=== PATIENT | male | born 1935 | race Caucasian/White ===

== ENCOUNTER 2016-11-07 22:09 | Inpatient (IN) | payer OTHER, MEDICAID ==
[~2016-11-07] VITALS: Ht 165.1 cm; Wt 60.4 kg
[~2016-11-07 22:09] MED LIST: ETOMIDATE 2MG/ML 10ML VIAL IV ONE; SUCCINYLCHOLINE CHLORIDE 200MG/10ML VIAL IV ONE
[2016-11-07] MEDS ORDERED: NITROGLYCERIN OINT 1GM/INCH UDPKT TD STA (22:17)
[2016-11-07] MEDS ORDERED: FUROSEMIDE 40MG/4ML VIAL IV STA (22:17)
[2016-11-07] MEDS ORDERED: LORAZEPAM 2MG/ML CPJ ONE (22:28)
[2016-11-07] MEDS ORDERED: LORAZEPAM 2MG/ML CPJ IV ONE (22:30)
[2016-11-07 22:52] LABS: BG BASE EXCESS -1.9 mmol/L (-2.0-2.0); BG BILEVEL POS AIRWAY PRESSURE 15/5; BG CARBOXYHEMOGLOBIN 0.4 % (0.5-1.5); BG DEOXYHEMOGLOBIN 0.1 % (0.0-5.0); BG FRACTION INSPIRED OXYGEN 100; BG HCO3 ACT 18.6 mmol/L (22.0-26.0); BG METHEMOGLOBIN 0.5 % (0.0-1.5); BG OXYGEN SATURATION 99.9 % (92.0-98.5); BG PCO2 22.2 mmHg (35.0-45.0); BG PH 7.541 (7.350-7.450); BG PO2 412.4 mmHg (75.0-100.0); BG SAMPLE SITE RIGHT BRACHIAL; BG TOTAL HEMOGLOBIN 13.6 g/dL (12.0-18.0); BG VENT MODE MASK - BIPAP
[2016-11-07 22:59] LABS: HEMATOCRIT. 37.7 % (42.0-52.0); HEMOGLOBIN. 12.4 g/dL (14.0-18.0); MEAN CORPUSCULAR HEMOGLOBIN 29.3 pg (28.0-32.0); MEAN CORPUSCULAR VOLUME 89.3 fL (80.0-94.0); MEAN PLATELET VOLUME 8.9 fl (7.4-10.4); PLATELET 76 x1000/uL (130-400); RED BLOOD CELL COUNT 4.23 mill/uL (4.7-6.1); RED CELL DISTRIBUTION WIDTH 18.1 % (11.6-14.6)
[2016-11-07] MEDS ORDERED: DILTIAZEM HCL 5MG/ML 5ML VIAL IV ONE (23:00)
[2016-11-07 23:07] LABS: INR 1.4; PARTIAL THROMBOPLASTIN TIME 34.5 sec (23.4-31.0); PROTHROMBIN TIME 14.6 sec (9.4-11.6)
[2016-11-07 23:08] LABS: CARBON DIOXIDE 24 mEq/L (21-32); CHLORIDE 104 mEq/L (98-107)
[2016-11-07 23:13] LABS: TROPONIN I 0.09 ng/mL (0.00-0.04)
[2016-11-07 23:21] LABS: PLATELET ESTIMATE MARKEDLY DECREASED
[2016-11-07] MEDS ORDERED: SODIUM CHLORIDE 0.9% 1,000 ML IV ONE (23:22)
[2016-11-07] MEDS ORDERED: LEVOFLOXACIN 750MG PREMIX 150 ML IV ONE (23:30)
[2016-11-07] MEDS ORDERED: ACETAMINOPHEN 650MG SUPP PR ONE (23:45)
[2016-11-08] VITALS (21 sets, daily range): BP systolic 38–120; BP diastolic 17–84
[2016-11-08] MEDS ORDERED: ENOXAPARIN 80MG/0.8ML SYR SUBCUT ONE (01:15)
[2016-11-08] MEDS ORDERED: ASPIRIN 325MG EC TABLET PO ONE (01:15)
[2016-11-08] MEDS ORDERED: SODIUM CHLORIDE 0.9% 1,000 ML IV ONE (02:18)
[2016-11-08] MEDS ORDERED: ONDANSETRON HCL 4MG/2ML VIAL IV PRN (05:15)
[2016-11-08] MEDS ORDERED: PIPERACILLIN/TAZ 3.375G PREMIX 50 ML IV SCH (05:15)
[2016-11-08] MEDS ORDERED: NOREPINEPHRINE 4 MG in DEXT 5% WATER 246 ML IV PRN (05:15)
[2016-11-08] MEDS ORDERED: IPRATROPIUM/ALBUTEROL 0.5-3(2.5)MG/3ML NEB HHN SCH (06:00)
[2016-11-08] MEDS ORDERED: PIPERACILLIN/TAZ 2.25G PREMIX 50 ML IV SCH (06:00)
[2016-11-08 06:51] LABS: HEMATOCRIT. 34.8 % (42.0-52.0); HEMOGLOBIN. 11.3 g/dL (14.0-18.0); MEAN CORPUSCULAR HEMOGLOBIN 29.5 pg (28.0-32.0); MEAN CORPUSCULAR VOLUME 90.5 fL (80.0-94.0); RED BLOOD CELL COUNT 3.85 mill/uL (4.7-6.1); RED CELL DISTRIBUTION WIDTH 18.1 % (11.6-14.6)
[2016-11-08] MEDS ORDERED: VANCOMYCIN 1500MG in DEXTROSE 5% WATER 250ML IV NR (07:00)
[2016-11-08 07:21] LABS: CREATINE KINASE MB FRACTION 6.3 ng/mL (0.5-3.6); TROPONIN I 0.17 ng/mL (0.00-0.04)
[2016-11-08 07:48] LABS: PLATELET 44 x1000/uL (130-400)
[2016-11-08 08:02] LABS: BG BASE EXCESS -3.6 mmol/L (-2.0-2.0); BG BILEVEL POS AIRWAY PRESSURE ST=15/5; BG CARBOXYHEMOGLOBIN 0.3 % (0.5-1.5); BG FRACTION INSPIRED OXYGEN 40; BG HCO3 ACT 18.6 mmol/L (22.0-26.0); BG METHEMOGLOBIN 0.2 % (0.0-1.5); BG OXYHEMOGLOBIN 98.5 % (94.0-97.0); BG PCO2 26.1 mmHg (35.0-45.0); BG PRESSURE SUPPORT 10; BG SAMPLE SITE RIGHT BRACHIAL; BG TOTAL HEMOGLOBIN 12.9 g/dL (12.0-18.0); BG VENT MODE MASK - BIPAP; BG VENT RATE 15 set
[2016-11-08] MEDS: PANTOPRAZOLE SODIUM 40 MG/VIAL IV SCH (10:27)
[2016-11-08 10:46] LABS: PLATELET ESTIMATE MARKEDLY DECREASED
[2016-11-08] MEDS ORDERED: DILTIAZEM HCL 5MG/ML 5ML VIAL IV NR (11:30)
[2016-11-08] MEDS ORDERED: DILTIAZEM HCL 125 MG in DEXTROSE 5% WATER 125 ML IV PRN (11:30)
[2016-11-08] MEDS ORDERED: DILTIAZEM HCL 5MG/ML 5ML VIAL IV ONE (11:35)
[2016-11-08] MEDS ORDERED: PHENYLEPHRINE HCL 10 MG/ML 1ML (IV VIAL) IV ONE (11:38)
[2016-11-08] MEDS ORDERED: DIGOXIN 500MCG/2ML AMP ONE (11:38)
[2016-11-08 11:39] LABS: ETHANOL BLOOD < 10 mg/dL; T4 FREE 1.39 ng/dL (0.76-1.46)
[2016-11-08] MEDS ORDERED: DIGOXIN 500MCG/2ML AMP IV NR (11:45)
[2016-11-08] MEDS ORDERED: NOREPINEPHRINE BITARTRATE 1MG/ML 4ML IV ONE (11:53)
[2016-11-08] MEDS ORDERED: LORAZEPAM 2MG/ML CPJ ONE (11:54)
[2016-11-08] MEDS ORDERED: SODIUM BICARBONATE 8.4% 1 MEQ/ML 50ML SYR IV ONE ×3 (11:55→12:00)
[2016-11-08] MEDS: IPRATROPIUM/ALBUTEROL 0.5-3(2.5)MG/3ML NEB HHN SCH ×3 (12:00→20:40)
[2016-11-08] MEDS ORDERED: VASOPRESSIN 10 UNIT in SODIUM CHLORIDE 0.9% 99.5 ML IV PRN (12:00)
[2016-11-08] MEDS ORDERED: LORAZEPAM 2MG/ML CPJ IV ONE (12:00)
[2016-11-08] MEDS ORDERED: PHENYLEPHRINE 10 MG in DEXT 5% WATER 249 ML IV PRN ×4 (12:00)
[2016-11-08] MEDS ORDERED: AMIODARONE HCL 900 MG in DEXT 5% WATER 482 ML IV SCH (12:00)
[2016-11-08] MEDS: PROPOFOL 10MG/ML 100ML 100 ML IV PRN ×2 (12:25→17:59)
[2016-11-08 12:29] LABS: BG BASE EXCESS -12.6 mmol/L (-2.0-2.0); BG DEOXYHEMOGLOBIN 0.4 % (0.0-5.0); BG FRACTION INSPIRED OXYGEN 100; BG HCO3 ACT 14.2 mmol/L (22.0-26.0); BG METHEMOGLOBIN 0.4 % (0.0-1.5); BG OXYGEN SATURATION 99.6 % (92.0-98.5); BG OXYHEMOGLOBIN 99.2 % (94.0-97.0); BG PCO2 35.9 mmHg (35.0-45.0); BG PH 7.216 (7.350-7.450); BG PO2 320.5 mmHg (75.0-100.0); BG SAMPLE SITE RIGHT RADIAL; BG TIDAL VOLUME(mL) 500 mL; BG VENT MODE VENT - A/C; BG VENT RATE 12 set
[2016-11-08] MEDS ORDERED: CEFEPIME 1GM PREMIX 50 ML IV SCH (13:00)
[2016-11-08] MEDS: CEFEPIME 1,000 MG in DEXTROSE 5% WATER 50 ML IV SCH (14:01)
[2016-11-08] MEDS: SODIUM BICARBONATE 100 MEQ in DEXTROSE 5% WATER 1,000 ML IV SCH (14:01)
[2016-11-08] MEDS: NOREPINEPHRINE 4 MG in DEXT 5% WATER 246 ML IV PRN ×2 (14:26→18:40)
[2016-11-08 14:54] LABS: HEMATOCRIT. 38.8 % (42.0-52.0); HEMOGLOBIN. 12.7 g/dL (14.0-18.0); MEAN CORPUSCULAR HEMOGLOBIN 29.7 pg (28.0-32.0); MEAN CORPUSCULAR VOLUME 90.7 fL (80.0-94.0); MEAN PLATELET VOLUME 9.3 fl (7.4-10.4); RED BLOOD CELL COUNT 4.28 mill/uL (4.7-6.1); RED CELL DISTRIBUTION WIDTH 18.3 % (11.6-14.6)
[2016-11-08 15:12] LABS: TROPONIN I 0.24 ng/mL (0.00-0.04)
[2016-11-08 15:17] LABS: CREATINE KINASE MB FRACTION 7.5 ng/mL (0.5-3.6)
[2016-11-08 15:20] LABS: PLATELET 43 x1000/uL (130-400)
[2016-11-08 15:23] LABS: CLARITY URINE CLOUDY (CLEAR); COLOR URINE YELLOW (YELLOW); GLUCOSE URINE NEGATIVE (NEGATIVE); KETONES URINE NEGATIVE (NEGATIVE); LEUKOCYTE ESTERASE URINE 3+ (NEGATIVE); NITRITE URINE NEGATIVE (NEGATIVE); OCCULT BLOOD URINE 3+ (NEGATIVE); PH URINE 5.5 (4.5-8.0); PROTEIN URINE 2+ (NEGATIVE); SPECIFIC GRAVITY URINE 1.014 (1.005-1.030); UROBILINOGEN URINE 0.2 E.U./dL (0.2-1.0)
[2016-11-08] MEDS ORDERED: PHENYLEPHRINE 80 MG in DEXT 5% WATER 500 ML IV PRN (20:30)
[2016-11-08] MEDS ORDERED: NOREPINEPHRINE 16 MG in DEXT 5% WATER 484 ML IV PRN (20:30)
[2016-11-08] MEDS ORDERED: CEFEPIME HCL 1000MG/VIAL INJ IM SCH (21:00)
[2016-11-08] MEDS: PHENYLEPHRINE 80 MG in DEXT 5% WATER 500 ML IV PRN (21:27)
[2016-11-08 23:02] LABS: PLATELET ESTIMATE MARKEDLY DECREASED
[2016-11-09] VITALS (69 sets, daily range): BP systolic 86–125; BP diastolic 31–89
[2016-11-09] MEDS: IPRATROPIUM/ALBUTEROL 0.5-3(2.5)MG/3ML NEB HHN SCH ×6 (00:19→20:59)
[2016-11-09] MEDS: SODIUM BICARBONATE 100 MEQ in DEXTROSE 5% WATER 1,000 ML IV SCH ×3 (02:13→14:18)
[2016-11-09 05:50] LABS: HEMATOCRIT. 38.6 % (42.0-52.0); HEMOGLOBIN. 12.7 g/dL (14.0-18.0); MEAN CORPUSCULAR HEMOGLOBIN 29.5 pg (28.0-32.0); MEAN CORPUSCULAR VOLUME 89.7 fL (80.0-94.0); MEAN PLATELET VOLUME 10.6 fl (7.4-10.4); RED CELL DISTRIBUTION WIDTH 18.1 % (11.6-14.6)
[2016-11-09 06:07] LABS: PLATELET 32 x1000/uL (130-400)
[2016-11-09 06:14] LABS: CARBON DIOXIDE 23 mEq/L (21-32); CHLORIDE 97 mEq/L (98-107); CREATINE KINASE MB FRACTION 3.9 ng/mL (0.5-3.6); HDL CHOLESTEROL 11 mg/dL (40-59); LDL CHOLESTEROL 27 mg/dL (5-100); TROPONIN I 0.26 ng/mL (0.00-0.04)
[2016-11-09 06:23] LABS: CREATINE KINASE 1272 IU/L (39-308)
[2016-11-09] MEDS: PROPOFOL 10MG/ML 100ML 100 ML IV PRN ×2 (06:59→23:23)
[2016-11-09 08:28] LABS: PLATELET ESTIMATE MARKEDLY DECREASED
[2016-11-09] MEDS ORDERED: POTASSIUM CHLORIDE 20MEQ TABLET SR PO SCH (08:30)
[2016-11-09] MEDS: PANTOPRAZOLE SODIUM 40 MG/VIAL IV SCH (08:55)
[2016-11-09 10:08] LABS: BG BASE EXCESS -2.2 mmol/L (-2.0-2.0); BG CARBOXYHEMOGLOBIN 0.3 % (0.5-1.5); BG DEOXYHEMOGLOBIN 1.9 % (0.0-5.0); BG FRACTION INSPIRED OXYGEN 40; BG HCO3 ACT 19.7 mmol/L (22.0-26.0); BG METHEMOGLOBIN 0.3 % (0.0-1.5); BG OXYGEN SATURATION 98.1 % (92.0-98.5); BG OXYHEMOGLOBIN 97.5 % (94.0-97.0); BG PCO2 26.3 mmHg (35.0-45.0); BG PH 7.492 (7.350-7.450); BG PO2 106.5 mmHg (75.0-100.0); BG SAMPLE SITE LEFT RADIAL; BG TIDAL VOLUME(mL) 500 mL; BG VENT MODE VENT - A/C; BG VENT RATE 12 set
[2016-11-09] MEDS: PHENYLEPHRINE 80 MG in DEXT 5% WATER 500 ML IV PRN (10:25)
[2016-11-09] MEDS ORDERED: VANCOMYCIN 1 G PREMIX 200 ML IV NR (12:00)
[2016-11-09] MEDS ORDERED: VANCOMYCIN HCL 1000 MG/20 ML ORAL PO SCH (12:00)
[2016-11-09] MEDS: ACETAMINOPHEN 650MG/20.3ML UDC NG PRN (12:24)
[2016-11-09] MEDS: DILTIAZEM HCL 30MG TABLET PO SCH ×2 (13:15→17:45)
[2016-11-09] MEDS: CEFEPIME 1,000 MG in DEXTROSE 5% WATER 50 ML IV SCH (13:46)
[2016-11-09] MEDS ORDERED: METRONIDAZOLE 500MG TABLET PO SCH (14:00)
[2016-11-09] MEDS ORDERED: FURO20TA4 PO (15:43)
[2016-11-09] MEDS ORDERED: TAMS0.4C31 PO (15:43)
[2016-11-09] MEDS ORDERED: OCD PO (15:43)
[2016-11-09] MEDS ORDERED: FINA5TAB11 PO (15:43)
[2016-11-09] MEDS ORDERED: ASPI-1159 PO (15:43)
[2016-11-09] MEDS ORDERED: METO25TA6 PO (15:43)
[2016-11-09] MEDS: VANCOMYCIN HCL 1000 MG/20 ML ORAL NG SCH (17:45)
[2016-11-09] MEDS ORDERED: METRONIDAZOLE 500 MG PREMIX 100 ML IV SCH (22:00)
[2016-11-10] VITALS (57 sets, daily range): BP systolic 83–127; BP diastolic 50–87
[2016-11-10] MEDS: IPRATROPIUM/ALBUTEROL 0.5-3(2.5)MG/3ML NEB HHN SCH ×6 (00:32→20:03)
[2016-11-10] MEDS: PHENYLEPHRINE 80 MG in DEXT 5% WATER 500 ML IV PRN ×2 (00:38→18:23)
[2016-11-10] MEDS: DILTIAZEM HCL 30MG TABLET PO SCH ×5 (00:39→23:54)
[2016-11-10] MEDS: VANCOMYCIN HCL 1000 MG/20 ML ORAL NG SCH ×5 (00:39→23:54)
[2016-11-10] MEDS ORDERED: LEVOFLOXACIN 500MG PREMIX 100 ML IV SCH (01:00)
[2016-11-10] MEDS: SODIUM BICARBONATE 100 MEQ in DEXTROSE 5% WATER 1,000 ML IV SCH (01:51)
[2016-11-10 04:59] LABS: HEMATOCRIT. 35.1 % (42.0-52.0); HEMOGLOBIN. 11.8 g/dL (14.0-18.0); MEAN CORPUSCULAR HEMOGLOBIN 29.8 pg (28.0-32.0); MEAN CORPUSCULAR VOLUME 88.3 fL (80.0-94.0); MEAN PLATELET VOLUME 10.9 fl (7.4-10.4); RED BLOOD CELL COUNT 3.97 mill/uL (4.7-6.1); RED CELL DISTRIBUTION WIDTH 18.1 % (11.6-14.6)
[2016-11-10 05:08] LABS: CREATINE KINASE MB FRACTION 1.8 ng/mL (0.5-3.6); PHOSPHORUS 3.3 mg/dL (2.5-4.9); TROPONIN I 0.04 ng/mL (0.00-0.04)
[2016-11-10 05:37] LABS: PLATELET 33 x1000/uL (130-400)
[2016-11-10] MEDS ORDERED: POTASSIUM CHLORIDE INJ 40 MEQ in DEXT 5% WATER 250 ML IV SCH (06:30)
[2016-11-10 07:14] LABS: BG BASE EXCESS 4.7 mmol/L (-2.0-2.0); BG CARBOXYHEMOGLOBIN 0.2 % (0.5-1.5); BG DEOXYHEMOGLOBIN 2.1 % (0.0-5.0); BG FRACTION INSPIRED OXYGEN 40; BG HCO3 ACT 27.5 mmol/L (22.0-26.0); BG METHEMOGLOBIN 0.1 % (0.0-1.5); BG OXYGEN SATURATION 97.9 % (92.0-98.5); BG OXYHEMOGLOBIN 97.6 % (94.0-97.0); BG PCO2 34.4 mmHg (35.0-45.0); BG PO2 103.4 mmHg (75.0-100.0); BG SAMPLE SITE LEFT RADIAL; BG TIDAL VOLUME(mL) 450 mL; BG TOTAL HEMOGLOBIN 12.6 g/dL (12.0-18.0); BG VENT MODE VENT - A/C; BG VENT RATE 10 set
[2016-11-10] MEDS: PROPOFOL 10MG/ML 100ML 100 ML IV PRN (09:21)
[2016-11-10] MEDS: PANTOPRAZOLE SODIUM 40 MG/VIAL IV SCH (10:00)
[2016-11-10] MEDS: DEXT 5%/0.9% NACL 1,000 ML IV SCH ×2 (10:23→23:56)
[2016-11-10] MEDS ORDERED: MORPHINE SULFATE 2 MG/ML CPJ (NOT FOR IM USE) IV PRN (10:45)
[2016-11-10 11:57] LABS: PLATELET ESTIMATE MARKEDLY DECREASED
[2016-11-10] MEDS: CEFEPIME 1,000 MG in DEXTROSE 5% WATER 50 ML IV SCH (14:35)
[2016-11-10] MEDS: LORAZEPAM 2MG/ML CPJ IV PRN ×2 (18:29→23:54)
[2016-11-10] MEDS: MORPHINE SULFATE 2 MG/ML CPJ (NOT FOR IM USE) IV PRN (19:37)
[2016-11-11] VITALS (45 sets, daily range): BP systolic 83–136; BP diastolic 53–99
[2016-11-11] MEDS: IPRATROPIUM/ALBUTEROL 0.5-3(2.5)MG/3ML NEB HHN SCH ×6 (00:30→20:52)
[2016-11-11] MEDS: MORPHINE SULFATE 2 MG/ML CPJ (NOT FOR IM USE) IV PRN (03:09)
[2016-11-11 05:38] LABS: HEMATOCRIT. 32.1 % (42.0-52.0); HEMOGLOBIN. 10.7 g/dL (14.0-18.0); MEAN CORPUSCULAR HEMOGLOBIN 29.7 pg (28.0-32.0); MEAN CORPUSCULAR VOLUME 88.8 fL (80.0-94.0); MEAN PLATELET VOLUME 10.9 fl (7.4-10.4); RED BLOOD CELL COUNT 3.61 mill/uL (4.7-6.1); RED CELL DISTRIBUTION WIDTH 17.7 % (11.6-14.6)
[2016-11-11] MEDS: DILTIAZEM HCL 30MG TABLET PO SCH ×3 (05:53→17:55)
[2016-11-11] MEDS: VANCOMYCIN HCL 1000 MG/20 ML ORAL NG SCH ×4 (05:53→23:58)
[2016-11-11 05:59] LABS: PHOSPHORUS 2.2 mg/dL (2.5-4.9)
[2016-11-11 07:57] LABS: BG BASE EXCESS 2.2 mmol/L (-2.0-2.0); BG CARBOXYHEMOGLOBIN 0.3 % (0.5-1.5); BG DEOXYHEMOGLOBIN 3.9 % (0.0-5.0); BG FRACTION INSPIRED OXYGEN 40; BG HCO3 ACT 25.9 mmol/L (22.0-26.0); BG METHEMOGLOBIN 0.2 % (0.0-1.5); BG OXYGEN SATURATION 96.1 % (92.0-98.5); BG OXYHEMOGLOBIN 95.6 % (94.0-97.0); BG PCO2 36.7 mmHg (35.0-45.0); BG PH 7.466 (7.350-7.450); BG PO2 82.8 mmHg (75.0-100.0); BG SAMPLE SITE RIGHT BRACHIAL; BG TIDAL VOLUME(mL) 450 mL; BG TOTAL HEMOGLOBIN 11.7 g/dL (12.0-18.0); BG VENT MODE VENT - A/C; BG VENT RATE 10 set
[2016-11-11] MEDS: PANTOPRAZOLE SODIUM 40 MG/VIAL IV SCH (09:16)
[2016-11-11] MEDS ORDERED: KCL 10MEQ/50ML PREMIX 50 ML IV NR (09:30)
[2016-11-11 10:00] LABS: NUCLEATED RED BLOOD CELLS 1 /100 WBC; PLATELET ESTIMATE MARKEDLY DECREASED
[2016-11-11 10:01] LABS: PLATELET 33 x1000/uL (130-400)
[2016-11-11 10:45] LABS: BG BASE EXCESS 4.4 mmol/L (-2.0-2.0); BG DEOXYHEMOGLOBIN 2.8 % (0.0-5.0); BG FRACTION INSPIRED OXYGEN 40; BG HCO3 ACT 28.5 mmol/L (22.0-26.0); BG OXYGEN SATURATION 97.2 % (92.0-98.5); BG OXYHEMOGLOBIN 97.2 % (94.0-97.0); BG PCO2 40.6 mmHg (35.0-45.0); BG PH 7.464 (7.350-7.450); BG PRESSURE SUPPORT 6; BG SAMPLE SITE RIGHT BRACHIAL; BG TOTAL HEMOGLOBIN 11.9 g/dL (12.0-18.0); BG VENT MODE VENT - CPAP
[2016-11-11] MEDS ORDERED: POTASSIUM PHOS,M-BASIC-D-BASIC 20 MMOL in DEXT 5% WATER 243.3333 ML IV NR (11:00)
[2016-11-11] MEDS: DEXT 5%/0.9% NACL 1,000 ML IV SCH (11:46)
[2016-11-11] MEDS: CEFEPIME 1,000 MG in DEXTROSE 5% WATER 50 ML IV SCH (13:02)
[2016-11-12] VITALS (28 sets, daily range): BP systolic 103–139; BP diastolic 48–85
[2016-11-12] MEDS: DILTIAZEM HCL 30MG TABLET PO SCH ×4 (00:01→18:24)
[2016-11-12] MEDS: IPRATROPIUM/ALBUTEROL 0.5-3(2.5)MG/3ML NEB HHN SCH ×6 (00:19→20:18)
[2016-11-12] MEDS: DEXT 5%/0.9% NACL 1,000 ML IV SCH (03:54)
[2016-11-12] MEDS: VANCOMYCIN HCL 1000 MG/20 ML ORAL NG SCH ×3 (05:20→18:24)
[2016-11-12 06:51] LABS: BASOPHILS % 0.5 % (0.0-2.0); EOSINOPHILS % 0.6 % (0.0-5.0); HEMATOCRIT. 31.3 % (42.0-52.0); HEMOGLOBIN. 10.6 g/dL (14.0-18.0); LYMPHOCYTES % 11.3 % (20.0-50.0); MEAN CORPUSCULAR HEMOGLOBIN 29.9 pg (28.0-32.0); MEAN CORPUSCULAR VOLUME 88.7 fL (80.0-94.0); MEAN PLATELET VOLUME 9.9 fl (7.4-10.4); MONOCYTES % 13.6 % (2.0-8.0); RED BLOOD CELL COUNT 3.52 mill/uL (4.7-6.1); RED CELL DISTRIBUTION WIDTH 18.3 % (11.6-14.6)
[2016-11-12 07:20] LABS: PHOSPHORUS 2.1 mg/dL (2.5-4.9)
[2016-11-12 07:45] LABS: PLATELET 37 x1000/uL (130-400)
[2016-11-12] MEDS: PANTOPRAZOLE SODIUM 40 MG/VIAL IV SCH (09:00)
[2016-11-12] MEDS: ACETAMINOPHEN 650MG/20.3ML UDC NG PRN (10:22)
[2016-11-12 10:45] LABS: BG BASE EXCESS 0.4 mmol/L (-2.0-2.0); BG CARBOXYHEMOGLOBIN 0.1 % (0.5-1.5); BG DEOXYHEMOGLOBIN 6.4 % (0.0-5.0); BG FRACTION INSPIRED OXYGEN 40; BG HCO3 ACT 23.3 mmol/L (22.0-26.0); BG OXYGEN SATURATION 93.6 % (92.0-98.5); BG OXYHEMOGLOBIN 93.5 % (94.0-97.0); BG PO2 69.5 mmHg (75.0-100.0); BG SAMPLE SITE RIGHT BRACHIAL; BG TOTAL HEMOGLOBIN 11.6 g/dL (12.0-18.0); BG VENT MODE NASAL CANNULA
[2016-11-12] MEDS: ACETYLCYSTEINE 100MG/ML 10% VIAL 4ML INH SCH ×3 (11:28→20:18)
[2016-11-12] MEDS: CEFEPIME 1,000 MG in DEXTROSE 5% WATER 50 ML IV SCH (12:54)
[2016-11-12] MEDS: DEXT 5%/0.45% NACL KCL 20MEQ/L 1,000 ML IV SCH (15:00)
[2016-11-12] MEDS ORDERED: POTASSIUM PHOS,M-BASIC-D-BASIC 15 MMOL in DEXT 5% WATER 245 ML IV NR (16:00)
[2016-11-13] VITALS (24 sets, daily range): BP systolic 111–138; BP diastolic 64–111
[2016-11-13] MEDS: ACETYLCYSTEINE 100MG/ML 10% VIAL 4ML INH SCH ×6 (00:16→20:26)
[2016-11-13] MEDS: IPRATROPIUM/ALBUTEROL 0.5-3(2.5)MG/3ML NEB HHN SCH ×6 (00:16→20:26)
[2016-11-13 00:27] LABS: CLARITY URINE CLEAR (CLEAR); COLOR URINE DARK YELLOW (YELLOW); GLUCOSE URINE NEGATIVE (NEGATIVE); KETONES URINE NEGATIVE (NEGATIVE); LEUKOCYTE ESTERASE URINE 3+ (NEGATIVE); NITRITE URINE NEGATIVE (NEGATIVE); OCCULT BLOOD URINE 3+ (NEGATIVE); PROTEIN URINE 2+ (NEGATIVE); SPECIFIC GRAVITY URINE 1.014 (1.005-1.030); UROBILINOGEN URINE 0.2 E.U./dL (0.2-1.0)
[2016-11-13] MEDS: DILTIAZEM HCL 30MG TABLET PO SCH ×5 (00:32→23:59)
[2016-11-13] MEDS: VANCOMYCIN HCL 1000 MG/20 ML ORAL NG SCH ×4 (01:00→18:18)
[2016-11-13] MEDS: DEXT 5%/0.45% NACL KCL 20MEQ/L 1,000 ML IV SCH ×2 (05:46→17:01)
[2016-11-13 06:21] LABS: BASOPHILS % 0.6 % (0.0-2.0); EOSINOPHILS % 2.1 % (0.0-5.0); HEMATOCRIT. 33.7 % (42.0-52.0); HEMOGLOBIN. 11.2 g/dL (14.0-18.0); LYMPHOCYTES % 10.1 % (20.0-50.0); MEAN CORPUSCULAR VOLUME 90.7 fL (80.0-94.0); MEAN PLATELET VOLUME 11.5 fl (7.4-10.4); MONOCYTES % 6.9 % (2.0-8.0); NEUTROPHILS % 80.3 % (40.0-76.0); RED BLOOD CELL COUNT 3.72 mill/uL (4.7-6.1); RED CELL DISTRIBUTION WIDTH 18.5 % (11.6-14.6)
[2016-11-13 06:59] LABS: PLATELET 47 x1000/uL (130-400)
[2016-11-13] MEDS: PANTOPRAZOLE SODIUM 40 MG/VIAL IV SCH (09:00)
[2016-11-13] MEDS: CEFEPIME 1,000 MG in DEXTROSE 5% WATER 50 ML IV SCH (13:09)
[2016-11-14] VITALS (38 sets, daily range): BP systolic 98–162; BP diastolic 20–113
[2016-11-14] MEDS: ACETYLCYSTEINE 100MG/ML 10% VIAL 4ML INH SCH ×4 (00:29→20:10)
[2016-11-14] MEDS: IPRATROPIUM/ALBUTEROL 0.5-3(2.5)MG/3ML NEB HHN SCH ×5 (00:29→20:10)
[2016-11-14] MEDS: VANCOMYCIN HCL 1000 MG/20 ML ORAL NG SCH ×5 (00:44→23:41)
[2016-11-14] MEDS: DILTIAZEM HCL 30MG TABLET PO SCH (05:36)
[2016-11-14] MEDS: MORPHINE SULFATE 2 MG/ML CPJ (NOT FOR IM USE) IV PRN (05:56)
[2016-11-14 06:28] LABS: BASOPHILS % 0.4 % (0.0-2.0); HEMATOCRIT. 31.5 % (42.0-52.0); HEMOGLOBIN. 10.5 g/dL (14.0-18.0); LYMPHOCYTES % 11.5 % (20.0-50.0); MEAN CORPUSCULAR VOLUME 89.9 fL (80.0-94.0); MEAN PLATELET VOLUME 9.8 fl (7.4-10.4); MONOCYTES % 9.3 % (2.0-8.0); NEUTROPHILS % 76.8 % (40.0-76.0); PLATELET 78 x1000/uL (130-400); RED CELL DISTRIBUTION WIDTH 18.2 % (11.6-14.6)
[2016-11-14] MEDS: DEXT 5%/0.45% NACL KCL 20MEQ/L 1,000 ML IV SCH ×2 (07:02→20:15)
[2016-11-14 08:00] LABS: PHOSPHORUS 2.3 mg/dL (2.5-4.9)
[2016-11-14] MEDS: PANTOPRAZOLE SODIUM 40 MG/VIAL IV SCH (08:31)
[2016-11-14] MEDS: CEFEPIME 1,000 MG in DEXTROSE 5% WATER 50 ML IV SCH (11:56)
[2016-11-14] MEDS: DILTIAZEM HCL 60MG TABLET PO SCH ×3 (11:57→23:08)
[2016-11-14] MEDS ORDERED: DIATR MEGLU/DIATRIZOATE SOLN 30ML PO SCH (14:15)
[2016-11-14] MEDS: DILTIAZEM HCL 5MG/ML 5ML VIAL IV PRN (22:52)
[2016-11-14] MEDS: LORAZEPAM 2MG/ML CPJ IV PRN (23:02)
[2016-11-15] VITALS (36 sets, daily range): BP systolic 96–136; BP diastolic 47–89
[2016-11-15] MEDS: IPRATROPIUM/ALBUTEROL 0.5-3(2.5)MG/3ML NEB HHN SCH ×6 (00:35→20:26)
[2016-11-15] MEDS: ACETYLCYSTEINE 100MG/ML 10% VIAL 4ML INH SCH ×6 (00:35→20:27)
[2016-11-15] MEDS: VANCOMYCIN HCL 1000 MG/20 ML ORAL NG SCH ×4 (05:53→23:54)
[2016-11-15] MEDS: DILTIAZEM HCL 60MG TABLET PO SCH ×2 (05:53→11:45)
[2016-11-15 05:56] LABS: BASOPHILS % 0.4 % (0.0-2.0); EOSINOPHILS % 2.4 % (0.0-5.0); HEMOGLOBIN. 9.8 g/dL (14.0-18.0); LYMPHOCYTES % 15.1 % (20.0-50.0); MEAN CORPUSCULAR HEMOGLOBIN 30.3 pg (28.0-32.0); MEAN CORPUSCULAR VOLUME 89.4 fL (80.0-94.0); MEAN PLATELET VOLUME 9.1 fl (7.4-10.4); NEUTROPHILS % 72.1 % (40.0-76.0); PLATELET 109 x1000/uL (130-400); RED BLOOD CELL COUNT 3.25 mill/uL (4.7-6.1)
[2016-11-15] MEDS: PANTOPRAZOLE SODIUM 40 MG/VIAL IV SCH (09:36)
[2016-11-15] MEDS: DEXT 5%/0.45% NACL KCL 20MEQ/L 1,000 ML IV SCH ×2 (09:36→23:55)
[2016-11-15 11:04] LABS: BG BASE EXCESS -1.5 mmol/L (-2.0-2.0); BG CARBOXYHEMOGLOBIN 0.6 % (0.5-1.5); BG DEOXYHEMOGLOBIN 4.4 % (0.0-5.0); BG FRACTION INSPIRED OXYGEN 32; BG HCO3 ACT 22.5 mmol/L (22.0-26.0); BG METHEMOGLOBIN 0.1 % (0.0-1.5); BG OXYGEN SATURATION 95.6 % (92.0-98.5); BG OXYHEMOGLOBIN 94.9 % (94.0-97.0); BG PCO2 35.2 mmHg (35.0-45.0); BG PH 7.424 (7.350-7.450); BG PO2 78.9 mmHg (75.0-100.0); BG SAMPLE SITE LEFT RADIAL; BG TOTAL HEMOGLOBIN 10.7 g/dL (12.0-18.0); BG VENT MODE NASAL CANNULA
[2016-11-15] MEDS: QUETIAPINE FUMARATE 25MG TABLET PO SCH ×2 (11:44→21:18)
[2016-11-15] MEDS ORDERED: MAGNESIUM 2 G PREMIX 50 ML IV NR (12:00)
[2016-11-15] MEDS: CEFEPIME 1,000 MG in DEXTROSE 5% WATER 50 ML IV SCH (12:22)
[2016-11-15] MEDS: DILTIAZEM HCL 5MG/ML 5ML VIAL IV PRN (14:25)
[2016-11-15] MEDS: ACETAMINOPHEN 650MG/20.3ML UDC NG PRN (14:25)
[2016-11-15] MEDS ORDERED: DILTIAZEM HCL 5MG/ML 5ML VIAL IV NR (15:15)
[2016-11-15] MEDS ORDERED: DILTIAZEM HCL 5MG/ML 5ML VIAL IV PRN (15:45)
[2016-11-15] MEDS: MORPHINE SULFATE 2 MG/ML CPJ (NOT FOR IM USE) IV PRN ×2 (15:49→23:55)
[2016-11-15] MEDS: DILTIAZEM HCL 90MG TABLET PO SCH ×2 (16:53→23:54)
[2016-11-16] VITALS (52 sets, daily range): BP systolic 100–148; BP diastolic 55–97
[2016-11-16] MEDS: IPRATROPIUM/ALBUTEROL 0.5-3(2.5)MG/3ML NEB HHN SCH ×6 (00:23→20:15)
[2016-11-16] MEDS: ACETYLCYSTEINE 100MG/ML 10% VIAL 4ML INH SCH ×6 (00:23→20:15)
[2016-11-16] MEDS: MORPHINE SULFATE 2 MG/ML CPJ (NOT FOR IM USE) IV PRN ×2 (03:59→13:37)
[2016-11-16] MEDS: DILTIAZEM HCL 90MG TABLET PO SCH ×3 (05:03→17:46)
[2016-11-16] MEDS: VANCOMYCIN HCL 1000 MG/20 ML ORAL NG SCH ×2 (05:03→13:38)
[2016-11-16 05:29] LABS: BASOPHILS % 0.5 % (0.0-2.0); EOSINOPHILS % 1.1 % (0.0-5.0); HEMATOCRIT. 29.1 % (42.0-52.0); HEMOGLOBIN. 9.8 g/dL (14.0-18.0); LYMPHOCYTES % 7.4 % (20.0-50.0); MEAN CORPUSCULAR HEMOGLOBIN 30.5 pg (28.0-32.0); MEAN CORPUSCULAR VOLUME 91.1 fL (80.0-94.0); MEAN PLATELET VOLUME 9.2 fl (7.4-10.4); MONOCYTES % 7.5 % (2.0-8.0); NEUTROPHILS % 83.5 % (40.0-76.0); PLATELET 131 x1000/uL (130-400); RED CELL DISTRIBUTION WIDTH 18.6 % (11.6-14.6)
[2016-11-16 05:49] LABS: CARBON DIOXIDE 23 mEq/L (21-32); CHLORIDE 108 mEq/L (98-107); CREATINE KINASE 379 IU/L (39-308)
[2016-11-16 05:50] LABS: CREATINE KINASE MB FRACTION 4.4 ng/mL (0.5-3.6)
[2016-11-16] MEDS: PANTOPRAZOLE SODIUM 40 MG/VIAL IV SCH (08:19)
[2016-11-16] MEDS: QUETIAPINE FUMARATE 25MG TABLET PO SCH ×2 (08:19→21:05)
[2016-11-16] MEDS ORDERED: ENOXAPARIN 30MG/0.3ML SYR SUBCUT SCH (09:30)
[2016-11-16] MEDS ORDERED: HEPARIN 25,000 UNITS PREMIX 500 ML IV SCH (09:45)
[2016-11-16] MEDS ORDERED: DIPHENHYDRAMINE 50MG/ML VIAL IV PRN (10:00)
[2016-11-16] MEDS ORDERED: MAGNESIUM 1 G PREMIX 100 ML IV NR (10:00)
[2016-11-16 12:01] LABS: INR 1.2; PARTIAL THROMBOPLASTIN TIME 30.1 sec (23.4-31.0); PROTHROMBIN TIME 12.8 sec (9.4-11.6)
[2016-11-16] MEDS: CEFEPIME 1,000 MG in DEXTROSE 5% WATER 50 ML IV SCH (12:09)
[2016-11-16] MEDS ORDERED: HEPARIN BOLUS PRN aPTT <30 IV (12:15)
[2016-11-16] MEDS ORDERED: HEPARIN 60 UNITS/KG BOLUS IV SCH (12:15)
[2016-11-16] MEDS: HEPARIN 25,000 UNITS PREMIX 500 ML IV SCH (13:17)
[2016-11-16] MEDS: VANCOMYCIN HCL 1000 MG/20 ML ORAL PO SCH (17:46)
[2016-11-16] MEDS: HEPARIN BOLUS PRN aPTT 30-44 IV (21:06)
[2016-11-17] VITALS (21 sets, daily range): BP systolic 115–147; BP diastolic 41–103
[2016-11-17] MEDS: DILTIAZEM HCL 90MG TABLET PO SCH ×4 (00:05→18:00)
[2016-11-17] MEDS: VANCOMYCIN HCL 1000 MG/20 ML ORAL PO SCH ×4 (00:05→18:00)
[2016-11-17] MEDS: IPRATROPIUM/ALBUTEROL 0.5-3(2.5)MG/3ML NEB HHN SCH ×7 (00:46→20:56)
[2016-11-17] MEDS: ACETYLCYSTEINE 100MG/ML 10% VIAL 4ML INH SCH ×4 (00:47→11:09)
[2016-11-17 03:20] LABS: BASOPHILS % 0.8 % (0.0-2.0); HEMATOCRIT. 30.2 % (42.0-52.0); HEMOGLOBIN. 10.1 g/dL (14.0-18.0); LYMPHOCYTES % 10.4 % (20.0-50.0); MEAN CORPUSCULAR HEMOGLOBIN 30.5 pg (28.0-32.0); MEAN CORPUSCULAR VOLUME 91.3 fL (80.0-94.0); MEAN PLATELET VOLUME 8.2 fl (7.4-10.4); MONOCYTES % 8.4 % (2.0-8.0); NEUTROPHILS % 79.4 % (40.0-76.0); PLATELET 188 x1000/uL (130-400); RED BLOOD CELL COUNT 3.31 mill/uL (4.7-6.1); RED CELL DISTRIBUTION WIDTH 18.3 % (11.6-14.6)
[2016-11-17] MEDS: HEPARIN BOLUS PRN aPTT 30-44 IV (04:01)
[2016-11-17] MEDS: PANTOPRAZOLE SODIUM 40 MG/VIAL IV SCH (08:31)
[2016-11-17] MEDS: QUETIAPINE FUMARATE 25MG TABLET PO SCH ×2 (08:32→21:00)
[2016-11-17] MEDS: MORPHINE SULFATE 2 MG/ML CPJ (NOT FOR IM USE) IV PRN (11:27)
[2016-11-17] MEDS: CARVEDILOL 6.25 MG TABLET PO SCH ×2 (12:33→21:00)
[2016-11-17] MEDS: CEFEPIME 1,000 MG in DEXTROSE 5% WATER 50 ML IV SCH (12:34)
[2016-11-17] MEDS ORDERED: MORPHINE SULFATE 4 MG/ML CPJ (NOT FOR IM USE) IV PRN (15:15)
[2016-11-17] MEDS: LORAZEPAM 2MG/ML CPJ IV PRN (15:41)
[2016-11-17] MEDS: HEPARIN 25,000 UNITS PREMIX 500 ML IV SCH (16:53)
[2016-11-17] MEDS ORDERED: WARFARIN SODIUM 5MG TABLET PO SCH (18:00)
[2016-11-18] VITALS (12 sets, daily range): BP systolic 93–155; BP diastolic 47–96
[2016-11-18] MEDS: IPRATROPIUM/ALBUTEROL 0.5-3(2.5)MG/3ML NEB HHN SCH ×6 (00:42→20:40)
[2016-11-18] MEDS: DILTIAZEM HCL 90MG TABLET PO SCH ×4 (06:00→17:14)
[2016-11-18] MEDS: VANCOMYCIN HCL 1000 MG/20 ML ORAL PO SCH ×4 (06:00→17:19)
[2016-11-18 07:31] LABS: INR 1.2; PARTIAL THROMBOPLASTIN TIME 49.8 sec (23.4-31.0); PROTHROMBIN TIME 12.3 sec (9.4-11.6)
[2016-11-18 07:53] LABS: BASOPHILS % 0.4 % (0.0-2.0); EOSINOPHILS % 0.8 % (0.0-5.0); HEMOGLOBIN. 10.8 g/dL (14.0-18.0); MEAN CORPUSCULAR HEMOGLOBIN 30.5 pg (28.0-32.0); MEAN CORPUSCULAR VOLUME 90.7 fL (80.0-94.0); MEAN PLATELET VOLUME 8.5 fl (7.4-10.4); MONOCYTES % 7.1 % (2.0-8.0); NEUTROPHILS % 80.7 % (40.0-76.0); PLATELET 237 x1000/uL (130-400); RED BLOOD CELL COUNT 3.53 mill/uL (4.7-6.1); RED CELL DISTRIBUTION WIDTH 18.4 % (11.6-14.6)
[2016-11-18] MEDS: PANTOPRAZOLE SODIUM 40 MG/VIAL IV SCH (08:08)
[2016-11-18] MEDS: QUETIAPINE FUMARATE 25MG TABLET PO SCH ×2 (08:08→20:25)
[2016-11-18] MEDS: CARVEDILOL 6.25 MG TABLET PO SCH (08:09)
[2016-11-18 08:11] LABS: CARBON DIOXIDE 23 mEq/L (21-32); CHLORIDE 105 mEq/L (98-107)
[2016-11-18] MEDS: CARVEDILOL 12.5MG TABLET PO SCH ×2 (09:00→20:25)
[2016-11-18] MEDS ORDERED: CARVEDILOL 6.25 MG TABLET PO SCH (11:30)
[2016-11-18] MEDS: CEFEPIME 1,000 MG in DEXTROSE 5% WATER 50 ML IV SCH (13:02)
[2016-11-18] MEDS: HEPARIN 25,000 UNITS PREMIX 500 ML IV SCH (14:34)
[2016-11-18] MEDS ORDERED: WARFARIN SODIUM 5MG TABLET PO NR (18:00)
[2016-11-19] VITALS (12 sets, daily range): BP systolic 94–132; BP diastolic 55–95
[2016-11-19] MEDS: IPRATROPIUM/ALBUTEROL 0.5-3(2.5)MG/3ML NEB HHN SCH ×6 (00:14→20:19)
[2016-11-19] MEDS: VANCOMYCIN HCL 1000 MG/20 ML ORAL PO SCH ×4 (00:54→18:18)
[2016-11-19] MEDS: DILTIAZEM HCL 90MG TABLET PO SCH ×4 (00:54→18:18)
[2016-11-19 07:05] LABS: INR 1.2; PROTHROMBIN TIME 12.3 sec (9.4-11.6)
[2016-11-19 07:34] LABS: BASOPHILS % 0.4 % (0.0-2.0); EOSINOPHILS % 1.4 % (0.0-5.0); HEMATOCRIT. 34.9 % (42.0-52.0); HEMOGLOBIN. 11.6 g/dL (14.0-18.0); LYMPHOCYTES % 15.7 % (20.0-50.0); MEAN CORPUSCULAR HEMOGLOBIN 30.5 pg (28.0-32.0); MEAN CORPUSCULAR VOLUME 91.8 fL (80.0-94.0); MONOCYTES % 7.7 % (2.0-8.0); NEUTROPHILS % 74.8 % (40.0-76.0); PLATELET 284 x1000/uL (130-400); RED CELL DISTRIBUTION WIDTH 19.5 % (11.6-14.6)
[2016-11-19] MEDS: QUETIAPINE FUMARATE 25MG TABLET PO SCH ×2 (08:12→20:27)
[2016-11-19] MEDS: PANTOPRAZOLE SODIUM 40 MG/VIAL IV SCH (08:12)
[2016-11-19] MEDS: CARVEDILOL 12.5MG TABLET PO SCH ×2 (08:16→21:00)
[2016-11-19] MEDS: CEFEPIME 1,000 MG in DEXTROSE 5% WATER 50 ML IV SCH (12:31)
[2016-11-19] MEDS: HEPARIN 25,000 UNITS PREMIX 500 ML IV SCH (12:35)
[2016-11-19] MEDS: ACETAMINOPHEN 650MG/20.3ML UDC NG PRN (16:28)
[2016-11-19] MEDS ORDERED: WARFARIN SODIUM 5MG TABLET PO SCH (18:00)
[2016-11-20] VITALS (12 sets, daily range): BP systolic 93–136; BP diastolic 57–95
[2016-11-20] MEDS: IPRATROPIUM/ALBUTEROL 0.5-3(2.5)MG/3ML NEB HHN SCH ×4 (00:41→20:58)
[2016-11-20] MEDS: DILTIAZEM HCL 90MG TABLET PO SCH ×5 (01:11→23:46)
[2016-11-20] MEDS: VANCOMYCIN HCL 1000 MG/20 ML ORAL PO SCH ×5 (01:12→23:47)
[2016-11-20 06:30] LABS: INR 1.4; PARTIAL THROMBOPLASTIN TIME 60.5 sec (23.4-31.0); PROTHROMBIN TIME 14.3 sec (9.4-11.6)
[2016-11-20] MEDS: PANTOPRAZOLE SODIUM 40 MG/VIAL IV SCH (08:04)
[2016-11-20] MEDS: ACETAMINOPHEN 650MG/20.3ML UDC NG PRN (08:04)
[2016-11-20] MEDS: QUETIAPINE FUMARATE 25MG TABLET PO SCH ×2 (08:05→20:21)
[2016-11-20] MEDS: CARVEDILOL 12.5MG TABLET PO SCH ×2 (08:05→20:27)
[2016-11-20] MEDS ORDERED: TRAMADOL 50MG TABLET PO PRN (10:00)
[2016-11-20] MEDS: HEPARIN 25,000 UNITS PREMIX 500 ML IV SCH ×2 (10:04→18:47)
[2016-11-20] MEDS: CEFEPIME 1,000 MG in DEXTROSE 5% WATER 50 ML IV SCH (12:14)
[2016-11-20] MEDS ORDERED: WARFARIN SODIUM 5MG TABLET PO NR (18:00)
[2016-11-20] MEDS: LORAZEPAM 2MG/ML CPJ IV PRN (23:46)
[2016-11-21] VITALS (12 sets, daily range): BP systolic 91–129; BP diastolic 53–90
[2016-11-21 05:26] LABS: INR 1.8; PROTHROMBIN TIME 18.7 sec (9.4-11.6)
[2016-11-21] MEDS: VANCOMYCIN HCL 1000 MG/20 ML ORAL PO SCH ×3 (05:29→17:13)
[2016-11-21] MEDS: DILTIAZEM HCL 90MG TABLET PO SCH ×3 (05:30→17:12)
[2016-11-21] MEDS: HEPARIN 25,000 UNITS PREMIX 500 ML IV SCH (06:05)
[2016-11-21 07:02] LABS: CARBON DIOXIDE 23 mEq/L (21-32); CHLORIDE 105 mEq/L (98-107)
[2016-11-21 07:49] LABS: BASOPHILS % 1.3 % (0.0-2.0); EOSINOPHILS % 1.7 % (0.0-5.0); HEMATOCRIT. 33.4 % (42.0-52.0); HEMOGLOBIN. 11.2 g/dL (14.0-18.0); MEAN CORPUSCULAR HEMOGLOBIN 30.8 pg (28.0-32.0); MEAN CORPUSCULAR VOLUME 92.1 fL (80.0-94.0); MEAN PLATELET VOLUME 9.5 fl (7.4-10.4); MONOCYTES % 8.9 % (2.0-8.0); NEUTROPHILS % 72.1 % (40.0-76.0); PLATELET 339 x1000/uL (130-400); RED BLOOD CELL COUNT 3.63 mill/uL (4.7-6.1); RED CELL DISTRIBUTION WIDTH 21.5 % (11.6-14.6)
[2016-11-21] MEDS: IPRATROPIUM/ALBUTEROL 0.5-3(2.5)MG/3ML NEB HHN SCH ×4 (07:49→21:21)
[2016-11-21] MEDS: QUETIAPINE FUMARATE 25MG TABLET PO SCH ×2 (08:33→21:03)
[2016-11-21] MEDS: CARVEDILOL 12.5MG TABLET PO SCH ×2 (08:35→21:03)
[2016-11-21] MEDS: PANTOPRAZOLE SODIUM 40 MG/VIAL IV SCH (08:37)
[2016-11-21] MEDS ORDERED: WARFARIN SODIUM 5MG TABLET PO NR (18:00)
[2016-11-22] VITALS (15 sets, daily range): BP systolic 97–134; BP diastolic 56–84
[2016-11-22] MEDS: DILTIAZEM HCL 90MG TABLET PO SCH ×4 (00:11→17:03)
[2016-11-22] MEDS: VANCOMYCIN HCL 1000 MG/20 ML ORAL PO SCH ×4 (00:11→17:03)
[2016-11-22] MEDS: IPRATROPIUM/ALBUTEROL 0.5-3(2.5)MG/3ML NEB HHN SCH ×6 (00:34→20:15)
[2016-11-22 05:54] LABS: INR 2.2; PROTHROMBIN TIME 22.9 sec (9.4-11.6)
[2016-11-22] MEDS: QUETIAPINE FUMARATE 25MG TABLET PO SCH ×2 (08:02→21:39)
[2016-11-22] MEDS: PANTOPRAZOLE SODIUM 40 MG/VIAL IV SCH (08:04)
[2016-11-22] MEDS: CARVEDILOL 12.5MG TABLET PO SCH ×2 (08:04→21:00)
[2016-11-22] MEDS ORDERED: WARFARIN SODIUM 5MG TABLET PO NR (18:00)
[2016-11-23] VITALS (16 sets, daily range): BP systolic 96–138; BP diastolic 54–83
[2016-11-23] MEDS: IPRATROPIUM/ALBUTEROL 0.5-3(2.5)MG/3ML NEB HHN SCH ×5 (00:16→20:57)
[2016-11-23] MEDS: DILTIAZEM HCL 90MG TABLET PO SCH ×4 (00:32→18:00)
[2016-11-23] MEDS: VANCOMYCIN HCL 1000 MG/20 ML ORAL PO SCH ×4 (00:34→18:41)
[2016-11-23 06:46] LABS: INR 2.5; PROTHROMBIN TIME 26.1 sec (9.4-11.6)
[2016-11-23 07:14] LABS: BASOPHILS % 0.6 % (0.0-2.0); EOSINOPHILS % 1.2 % (0.0-5.0); HEMATOCRIT. 32.7 % (42.0-52.0); HEMOGLOBIN. 10.9 g/dL (14.0-18.0); LYMPHOCYTES % 20.1 % (20.0-50.0); MEAN CORPUSCULAR HEMOGLOBIN 30.9 pg (28.0-32.0); MEAN CORPUSCULAR VOLUME 92.9 fL (80.0-94.0); MEAN PLATELET VOLUME 8.6 fl (7.4-10.4); MONOCYTES % 11.4 % (2.0-8.0); NEUTROPHILS % 66.7 % (40.0-76.0); PLATELET 343 x1000/uL (130-400); RED BLOOD CELL COUNT 3.52 mill/uL (4.7-6.1); RED CELL DISTRIBUTION WIDTH 20.6 % (11.6-14.6)
[2016-11-23] MEDS: PANTOPRAZOLE SODIUM 40 MG/VIAL IV SCH (08:01)
[2016-11-23] MEDS: CARVEDILOL 12.5MG TABLET PO SCH ×2 (08:01→20:34)
[2016-11-23] MEDS ORDERED: WARFARIN SODIUM 3MG TABLET PO SCH (18:00)
[2016-11-23] MEDS ORDERED: WARFARIN SODIUM 4MG TABLET PO SCH (18:00)
[2016-11-23] MEDS: QUETIAPINE FUMARATE 25MG TABLET PO SCH (20:34)
[2016-11-24] VITALS (13 sets, daily range): BP systolic 93–133; BP diastolic 56–84
[2016-11-24] MEDS: IPRATROPIUM/ALBUTEROL 0.5-3(2.5)MG/3ML NEB HHN SCH ×5 (00:41→20:53)
[2016-11-24] MEDS: DILTIAZEM HCL 90MG TABLET PO SCH ×4 (00:48→18:00)
[2016-11-24 07:10] LABS: INR 2.6; PROTHROMBIN TIME 27.4 sec (9.4-11.6)
[2016-11-24 07:51] LABS: BASOPHILS % 0.9 % (0.0-2.0); EOSINOPHILS % 1.4 % (0.0-5.0); HEMATOCRIT. 33.9 % (42.0-52.0); HEMOGLOBIN. 11.4 g/dL (14.0-18.0); LYMPHOCYTES % 19.8 % (20.0-50.0); MEAN CORPUSCULAR HEMOGLOBIN 31.1 pg (28.0-32.0); MEAN CORPUSCULAR VOLUME 92.9 fL (80.0-94.0); MEAN PLATELET VOLUME 8.6 fl (7.4-10.4); NEUTROPHILS % 64.9 % (40.0-76.0); PLATELET 345 x1000/uL (130-400); RED BLOOD CELL COUNT 3.65 mill/uL (4.7-6.1); RED CELL DISTRIBUTION WIDTH 20.3 % (11.6-14.6)
[2016-11-24] MEDS: PANTOPRAZOLE SODIUM 40 MG/VIAL IV SCH (07:58)
[2016-11-24] MEDS: CARVEDILOL 12.5MG TABLET PO SCH ×2 (08:01→21:08)
[2016-11-24] MEDS: WARFARIN SODIUM 4MG TABLET PO SCH (19:31)
[2016-11-24] MEDS: QUETIAPINE FUMARATE 25MG TABLET PO SCH (21:08)
[2016-11-25] VITALS: BP 117/68
[2016-11-25] MEDS: DILTIAZEM HCL 90MG TABLET PO SCH ×5 (00:58→23:59)
[2016-11-25] MEDS: IPRATROPIUM/ALBUTEROL 0.5-3(2.5)MG/3ML NEB HHN SCH ×6 (01:13→20:35)
[2016-11-25 04:00] VITALS: BP 107/63
[2016-11-25 08:00] VITALS: BP 116/69
[2016-11-25] MEDS: FAMOTIDINE 20MG TABLET PO SCH (08:41)
[2016-11-25] MEDS: LACTOBACILLUS GG CAPSULE PO SCH (08:41)
[2016-11-25] MEDS: CARVEDILOL 12.5MG TABLET PO SCH ×2 (08:42→20:55)
[2016-11-25 12:00] VITALS: BP 96/56
[2016-11-25 13:14] LABS: INR 2.9; PROTHROMBIN TIME 30.8 sec (9.4-11.6)
[2016-11-25 16:00] VITALS: BP 103/67
[2016-11-25] MEDS: WARFARIN SODIUM 4MG TABLET PO SCH (17:14)
[2016-11-25 20:00] VITALS: BP 100/61
[2016-11-25] MEDS: QUETIAPINE FUMARATE 25MG TABLET PO SCH (20:56)
[2016-11-26] VITALS (7 sets, daily range): BP systolic 104–129; BP diastolic 63–80
[2016-11-26] MEDS: IPRATROPIUM/ALBUTEROL 0.5-3(2.5)MG/3ML NEB HHN SCH ×6 (00:24→20:00)
[2016-11-26] MEDS: HYDROCODONE/ACETAMINOPHEN 5/325MG TABLET PO PRN ×2 (03:19→20:19)
[2016-11-26] MEDS: DILTIAZEM HCL 90MG TABLET PO SCH ×4 (05:53→22:28)
[2016-11-26 06:06] LABS: EOSINOPHILS % 1.4 % (0.0-5.0); HEMATOCRIT. 34.6 % (42.0-52.0); HEMOGLOBIN. 11.5 g/dL (14.0-18.0); LYMPHOCYTES % 26.6 % (20.0-50.0); MEAN CORPUSCULAR HEMOGLOBIN 30.8 pg (28.0-32.0); MEAN CORPUSCULAR VOLUME 92.5 fL (80.0-94.0); MEAN PLATELET VOLUME 8.5 fl (7.4-10.4); MONOCYTES % 14.1 % (2.0-8.0); NEUTROPHILS % 56.9 % (40.0-76.0); PLATELET 384 x1000/uL (130-400); RED BLOOD CELL COUNT 3.74 mill/uL (4.7-6.1); RED CELL DISTRIBUTION WIDTH 19.8 % (11.6-14.6)
[2016-11-26 06:12] LABS: INR 3.3; PROTHROMBIN TIME 34.6 sec (9.4-11.6)
[2016-11-26] MEDS: CARVEDILOL 12.5MG TABLET PO SCH ×2 (09:00→20:19)
[2016-11-26] MEDS: FAMOTIDINE 20MG TABLET PO SCH (09:03)
[2016-11-26] MEDS: LACTOBACILLUS GG CAPSULE PO SCH (09:03)
[2016-11-26] MEDS: LISINOPRIL 2.5MG TABLET PO SCH (10:30)
[2016-11-26] MEDS: FUROSEMIDE 20MG TABLET PO SCH ×2 (11:09→20:21)
[2016-11-26] MEDS: QUETIAPINE FUMARATE 25MG TABLET PO SCH (20:20)
[2016-11-26] MEDS ORDERED: DILTIAZEM HCL 5MG/ML 5ML VIAL IV PRN (22:21)
[2016-11-27] MEDS: IPRATROPIUM/ALBUTEROL 0.5-3(2.5)MG/3ML NEB HHN SCH ×6 (00:28→21:47)
[2016-11-27 04:00] VITALS: BP 95/61
[2016-11-27] MEDS: DILTIAZEM HCL 90MG TABLET PO SCH ×3 (05:27→17:45)
[2016-11-27] MEDS: FUROSEMIDE 20MG TABLET PO SCH ×2 (05:32→17:45)
[2016-11-27 06:23] LABS: BASOPHILS % 0.9 % (0.0-2.0); EOSINOPHILS % 1.5 % (0.0-5.0); HEMATOCRIT. 38.4 % (42.0-52.0); HEMOGLOBIN. 12.7 g/dL (14.0-18.0); LYMPHOCYTES % 21.6 % (20.0-50.0); MEAN CORPUSCULAR HEMOGLOBIN 30.9 pg (28.0-32.0); MEAN CORPUSCULAR VOLUME 93.1 fL (80.0-94.0); MEAN PLATELET VOLUME 8.8 fl (7.4-10.4); MONOCYTES % 14.1 % (2.0-8.0); NEUTROPHILS % 61.9 % (40.0-76.0); PLATELET 363 x1000/uL (130-400); RED BLOOD CELL COUNT 4.12 mill/uL (4.7-6.1); RED CELL DISTRIBUTION WIDTH 19.7 % (11.6-14.6)
[2016-11-27 06:29] LABS: INR 2.5; PROTHROMBIN TIME 26.4 sec (9.4-11.6)
[2016-11-27 08:00] VITALS: BP 100/73
[2016-11-27] MEDS: LISINOPRIL 2.5MG TABLET PO SCH (09:00)
[2016-11-27] MEDS: LACTOBACILLUS GG CAPSULE PO SCH (09:42)
[2016-11-27] MEDS: CARVEDILOL 12.5MG TABLET PO SCH ×2 (09:42→21:45)
[2016-11-27] MEDS: FAMOTIDINE 20MG TABLET PO SCH (09:42)
[2016-11-27] MEDS: HYDROCODONE/ACETAMINOPHEN 5/325MG TABLET PO PRN (09:43)
[2016-11-27 12:00] VITALS: BP 89/47
[2016-11-27 12:30] VITALS: BP 103/69
[2016-11-27 16:00] VITALS: BP 97/62
[2016-11-27] MEDS ORDERED: WARFARIN SODIUM 4MG TABLET PO SCH (18:00)
[2016-11-27 20:00] VITALS: BP 116/83
[2016-11-27] MEDS: QUETIAPINE FUMARATE 25MG TABLET PO SCH (21:45)
[2016-11-28] VITALS (7 sets, daily range): BP systolic 73–118; BP diastolic 46–76
[2016-11-28] MEDS: IPRATROPIUM/ALBUTEROL 0.5-3(2.5)MG/3ML NEB HHN SCH ×5 (01:14→16:42)
[2016-11-28] MEDS: FUROSEMIDE 20MG TABLET PO SCH (05:30)
[2016-11-28] MEDS: DILTIAZEM HCL 90MG TABLET PO SCH ×3 (05:30→18:00)
[2016-11-28 06:27] LABS: INR 1.9; PROTHROMBIN TIME 20.2 sec (9.4-11.6)
[2016-11-28 06:57] LABS: BASOPHILS % 0.7 % (0.0-2.0); EOSINOPHILS % 1.7 % (0.0-5.0); HEMATOCRIT. 38.4 % (42.0-52.0); HEMOGLOBIN. 12.6 g/dL (14.0-18.0); LYMPHOCYTES % 24.5 % (20.0-50.0); MEAN CORPUSCULAR HEMOGLOBIN 30.4 pg (28.0-32.0); MEAN CORPUSCULAR VOLUME 92.8 fL (80.0-94.0); MEAN PLATELET VOLUME 8.4 fl (7.4-10.4); MONOCYTES % 13.7 % (2.0-8.0); NEUTROPHILS % 59.4 % (40.0-76.0); PLATELET 400 x1000/uL (130-400); RED BLOOD CELL COUNT 4.14 mill/uL (4.7-6.1); RED CELL DISTRIBUTION WIDTH 19.5 % (11.6-14.6)
[2016-11-28] MEDS: LACTOBACILLUS GG CAPSULE PO SCH (08:59)
[2016-11-28] MEDS: FAMOTIDINE 20MG TABLET PO SCH (09:00)
[2016-11-28] MEDS: LISINOPRIL 2.5MG TABLET PO SCH (09:00)
[2016-11-28] MEDS: CARVEDILOL 12.5MG TABLET PO SCH (09:02)
[2016-11-28] MEDS: HYDROCODONE/ACETAMINOPHEN 5/325MG TABLET PO PRN (10:44)
[2016-11-28] MEDS ORDERED: WARF4TAB40 PO (14:24)
[2016-11-28] MEDS ORDERED: COR12 PO (14:24)
[2016-11-28] MEDS ORDERED: SODIUM CHLORIDE 0.9% 500 ML IV NR (16:45)
[2016-11-28] MEDS ORDERED: ALBUMIN HUMAN 12.5GM/50ML (25%) IV NR (18:00)
[2016-11-28] MEDS ORDERED: WARFARIN SODIUM 4MG TABLET PO SCH (18:00)
[2016-11-29] MEDS ORDERED: FUROSEMIDE 20MG TABLET PO SCH (09:00)
== END 2016-11-28 21:00 | disposition home health service (06) | DRG 720 ==
LOC: ER 22:13 → 3WST 22:57 → EDBEDREQ 11-08 01:26 → ENRESERV 11-08 02:11 → CVICU 11-08 05:30 → 3WST 11-16 22:34 → 7WST 11-24 16:10
PROVIDERS: ADMIT Hospitalist; ATTEND Hospitalist
PROC: 5A09357 Assistance with Respiratory Ventilation, Less than 24 Consecutive Hours, Continuous Positive Airway Pressure (ICD-10-PCS; 2016-11-07)
PROC: 5A1945Z Respiratory Ventilation, 24-96 Consecutive Hours (ICD-10-PCS; principal; 2016-11-08)
PROC: 0BH17EZ Insertion of Endotracheal Airway into Trachea, Via Natural or Artificial Opening (ICD-10-PCS; 2016-11-08)
PROC: 05H933Z Insertion of Infusion Device into Right Brachial Vein, Percutaneous Approach (ICD-10-PCS; 2016-11-08)
PROC: B54MZZA Ultrasonography of Right Upper Extremity Veins, Guidance (ICD-10-PCS; 2016-11-08)
DX: A41.51 Sepsis due to Escherichia coli [E. coli] (principal); J96.00 Acute respiratory failure, unspecified whether with hypoxia or hypercapnia; K72.00 Acute and subacute hepatic failure without coma; R65.21 Severe sepsis with septic shock; G93.40 Encephalopathy, unspecified; I50.23 Acute on chronic systolic (congestive) heart failure; A04.7 Enterocolitis due to Clostridium difficile; N17.9 Acute kidney failure, unspecified; E46 Unspecified protein-calorie malnutrition; I48.91 Unspecified atrial fibrillation; J44.0 Chronic obstructive pulmonary disease with (acute) lower respiratory infection; I82.439 Acute embolism and thrombosis of unspecified popliteal vein; M62.82 Rhabdomyolysis; D64.9 Anemia, unspecified; D69.6 Thrombocytopenia, unspecified; E83.39 Other disorders of phosphorus metabolism; E87.1 Hypo-osmolality and hyponatremia; E87.6 Hypokalemia; I11.0 Hypertensive heart disease with heart failure; I25.10 Atherosclerotic heart disease of native coronary artery without angina pectoris; I42.9 Cardiomyopathy, unspecified; I82.411 Acute embolism and thrombosis of right femoral vein; J98.11 Atelectasis; N39.0 Urinary tract infection, site not specified; N40.0 Benign prostatic hyperplasia without lower urinary tract symptoms; Z87.891 Personal history of nicotine dependence; Z95.810 Presence of automatic (implantable) cardiac defibrillator; Z68.22 Body mass index [BMI] 22.0-22.9, adult
CPT/HCPCS: 31500; 36415; 36569; 36600; 70450; 71010; 74176; 76937; 78580; 80048; 80053; 80061; 80076; 80202; 81001; 82375; 82550; 82553; 82805; 82962; 83605; 83735; 83880; 84100; 84439; 84443; 84478; 84484; 84550; 85025; 85610; 85730; 87040; 87070; 87077; 87086; 87186; 87493; 92610; 93005; 93306; 93923; 93970; 93971; 94002; 94003; 94640; 94660; 96361; 96365; 96366; 96375; 97110; 97163; 97164; 97167; 97530; 97535; 99291; A6261; C1725; C9113; G0482; J0282; J0330; J0692; J1160; J1200; J1644; J1650; J1940; J1956; J2060; J2270; J2370; J2405; J2543; J2704; J3370; J3475; J3480; J3490; J7030; J7040; J7042; J7050; J7060; J7070; J7608; J7620; P9047; Q9963; A4315